=== PATIENT | female | born 1940 | race Caucasian/White ===

== ENCOUNTER 2017-02-06 12:42 | Inpatient (IN) | payer MEDICARE ==
[~2017-02-06] VITALS: Ht 160 cm; Wt 72.1 kg
[2017-02-06] MEDS ORDERED: SODIUM CHLORIDE FLUSH 10ML SYR IVF ONE (14:00)
[2017-02-06] MEDS ORDERED: AMPICILLIN/SULBACTAM 3 GM in SODIUM CHLORIDE 0.9% 100 ML IVPB ONE (14:00)
[2017-02-06 14:21] LABS: ASPARTATE AMINO TRANSFERASE 17 U/L (15-37); BLOOD UREA NITROGEN 32 mg/dL (7-18)
[2017-02-06] MEDS ORDERED: SODIUM CHLORIDE FLUSH 10ML SYR IVF PRN (15:30)
[2017-02-06] MEDS ORDERED: GLIM2TAB2 PO (15:47)
[2017-02-06] MEDS ORDERED: METF500T4 PO (15:47)
[2017-02-06] MEDS ORDERED: OXYC-223 PO (15:47)
[2017-02-06] MEDS ORDERED: GABA100C8 PO (15:47)
[2017-02-06] MEDS ORDERED: ASPI81TA50 PO (15:47)
[2017-02-06] MEDS ORDERED: DIPH25CA61 PO (15:47)
[2017-02-06] MEDS ORDERED: SODI325T PO (15:47)
[2017-02-06] MEDS ORDERED: ASCO10004 PO (15:47)
[2017-02-06] MEDS ORDERED: RANI150T4 PO (15:47)
[2017-02-06] MEDS ORDERED: LOSA50TA6 PO (15:47)
[2017-02-06] MEDS ORDERED: CHOL20002 PO (15:47)
[2017-02-06] MEDS ORDERED: ATOR20TA9 PO (15:48)
[2017-02-06] MEDS ORDERED: ACETAMINOPHEN 325 MG TABLET PO PRN (16:30)
[2017-02-06] MEDS ORDERED: ONDANSETRON 2MG/ML, 2ML IVP PRN (16:30)
[2017-02-06] MEDS ORDERED: [UNRECOGNIZED DRUG - OTHER] IV ONE (16:30)
[2017-02-06] MEDS ORDERED: PHARMACY MAY ADJ FOR RENAL FX MC PRN (16:30)
[2017-02-06] MEDS ORDERED: ONDANSETRON ODT 4 MG PO PRN (16:30)
[2017-02-06 19:30] VITALS: BP 146/83
[2017-02-06] MEDS ORDERED: ETHACRYNIC ACID 25 MG PO ONE ×3 (21:30→22:00)
[2017-02-06] MEDS: INSULIN REGULAR 100 UNITS/ML, 3ML VIAL SQ-INSULIN SCH (23:02)
[2017-02-06] MEDS: HEPARIN 5,000 UNITS/ML, 1ML SQ SCH (23:02)
[2017-02-06] MEDS: ATORVASTATIN 20 MG TABLET PO SCH (23:02)
[2017-02-06] MEDS: GABAPENTIN 100 MG CAPSULE PO SCH (23:02)
[2017-02-06] MEDS: AMPICILLIN/SULBACTAM 3 GM in SODIUM CHLORIDE 0.9% 100 ML IV SCH (23:02)
[2017-02-06 23:09] VITALS: BP 146/93
[2017-02-06] MEDS: OXYcodone/APAP 7.5/325MG TABLET PO PRN (23:50)
[2017-02-06 23:57] LABS: PATH.CAST-FLAG NOT PRESENT; SPERM-FLAG NOT PRESENT; SRC-FLAG NOT PRESENT; XTAL-FLAG NOT PRESENT; YLC-FLAG NOT PRESENT
[2017-02-07] MEDS: HEPARIN 5,000 UNITS/ML, 1ML SQ SCH ×3 (00:52→16:51)
[2017-02-07 02:00] VITALS: BP 124/70
[2017-02-07] MEDS: AMPICILLIN/SULBACTAM 3 GM in SODIUM CHLORIDE 0.9% 100 ML IV SCH ×4 (05:12→23:08)
[2017-02-07 06:00] LABS: ASPARTATE AMINO TRANSFERASE 21 U/L (15-37); BLOOD UREA NITROGEN 32 mg/dL (7-18)
[2017-02-07] MEDS: INSULIN REGULAR 100 UNITS/ML, 3ML VIAL SQ-INSULIN SCH ×4 (07:00→21:31)
[2017-02-07 07:17] VITALS: BP 99/59
[2017-02-07] MEDS: ASPIRIN 81 MG TABLET EC PO SCH (08:50)
[2017-02-07] MEDS: SODIUM BICARBONATE 650 MG TABLET PO SCH (08:51)
[2017-02-07] MEDS: LOSARTAN 50MG TABLET PO SCH (08:51)
[2017-02-07] MEDS: OXYcodone/APAP 7.5/325MG TABLET PO PRN ×2 (09:08→21:31)
[2017-02-07 12:50] VITALS: BP 111/66
[2017-02-07] MEDS: metroNIDAZOLE 500 MG TABLET PO SCH ×2 (16:44→21:32)
[2017-02-07 20:00] VITALS: BP 99/59
[2017-02-07] MEDS: GABAPENTIN 100 MG CAPSULE PO SCH (21:32)
[2017-02-07] MEDS: ATORVASTATIN 20 MG TABLET PO SCH (21:32)
[2017-02-08 02:00] VITALS: BP 107/63
[2017-02-08] MEDS: HEPARIN 5,000 UNITS/ML, 1ML SQ SCH ×3 (02:59→17:56)
[2017-02-08] MEDS: AMPICILLIN/SULBACTAM 3 GM in SODIUM CHLORIDE 0.9% 100 ML IV SCH ×4 (05:09→22:57)
[2017-02-08 05:17] LABS: BLOOD UREA NITROGEN 26 mg/dL (7-18)
[2017-02-08 07:09] VITALS: BP 108/61
[2017-02-08] MEDS: INSULIN REGULAR 100 UNITS/ML, 3ML VIAL SQ-INSULIN SCH ×4 (07:30→21:00)
[2017-02-08] MEDS: LOSARTAN 50MG TABLET PO SCH (09:44)
[2017-02-08] MEDS: ASPIRIN 81 MG TABLET EC PO SCH (09:44)
[2017-02-08] MEDS: SODIUM BICARBONATE 650 MG TABLET PO SCH (09:44)
[2017-02-08] MEDS: metroNIDAZOLE 500 MG TABLET PO SCH ×3 (09:44→21:43)
[2017-02-08] MEDS: OXYcodone/APAP 7.5/325MG TABLET PO PRN ×2 (10:00→21:43)
[2017-02-08 13:12] VITALS: BP 106/62
[2017-02-08 20:00] VITALS: BP 138/64
[2017-02-08] MEDS: GABAPENTIN 100 MG CAPSULE PO SCH (21:42)
[2017-02-08] MEDS: ATORVASTATIN 20 MG TABLET PO SCH (21:43)
[2017-02-09 02:00] VITALS: BP 123/72
[2017-02-09] MEDS: HEPARIN 5,000 UNITS/ML, 1ML SQ SCH ×3 (02:30→16:59)
[2017-02-09 04:53] LABS: BLOOD UREA NITROGEN 22 mg/dL (7-18)
[2017-02-09] MEDS: AMPICILLIN/SULBACTAM 3 GM in SODIUM CHLORIDE 0.9% 100 ML IV SCH ×4 (05:10→22:36)
[2017-02-09] MEDS: INSULIN REGULAR 100 UNITS/ML, 3ML VIAL SQ-INSULIN SCH ×4 (07:00→22:37)
[2017-02-09 08:00] VITALS: BP 134/82
[2017-02-09] MEDS ORDERED: POTASSIUM CHLORIDE 20 MEQ TAB.ER.PRT PO ONE (08:00)
[2017-02-09] MEDS: OXYcodone/APAP 7.5/325MG TABLET PO PRN ×2 (09:07→22:49)
[2017-02-09] MEDS: ASPIRIN 81 MG TABLET EC PO SCH (09:07)
[2017-02-09] MEDS: metroNIDAZOLE 500 MG TABLET PO SCH ×3 (09:07→22:36)
[2017-02-09] MEDS: LOSARTAN 50MG TABLET PO SCH (09:07)
[2017-02-09] MEDS: SODIUM BICARBONATE 650 MG TABLET PO SCH (09:08)
[2017-02-09] MEDS ORDERED: [UNRECOGNIZED DRUG - OTHER] IV ONE (10:30)
[2017-02-09] MEDS ORDERED: ETHACRYNIC ACID 25 MG PO ONE (12:00)
[2017-02-09 16:05] VITALS: BP 129/75
[2017-02-09 19:41] VITALS: BP 117/70
[2017-02-09] MEDS: ATORVASTATIN 20 MG TABLET PO SCH (22:36)
[2017-02-09] MEDS: GABAPENTIN 100 MG CAPSULE PO SCH (22:36)
[2017-02-10] MEDS: HEPARIN 5,000 UNITS/ML, 1ML SQ SCH ×2 (02:30→10:30)
[2017-02-10 03:38] VITALS: BP 135/71
[2017-02-10] MEDS: AMPICILLIN/SULBACTAM 3 GM in SODIUM CHLORIDE 0.9% 100 ML IV SCH (05:18)
[2017-02-10] MEDS: INSULIN REGULAR 100 UNITS/ML, 3ML VIAL SQ-INSULIN SCH (07:00)
[2017-02-10 07:19] VITALS: BP 110/60
[2017-02-10] MEDS: SODIUM BICARBONATE 650 MG TABLET PO SCH (08:24)
[2017-02-10] MEDS: ASPIRIN 81 MG TABLET EC PO SCH (08:24)
[2017-02-10] MEDS: metroNIDAZOLE 500 MG TABLET PO SCH (08:24)
[2017-02-10] MEDS: LOSARTAN 50MG TABLET PO SCH (08:24)
[2017-02-10] MEDS: OXYcodone/APAP 7.5/325MG TABLET PO PRN (08:27)
[2017-02-10] MEDS ORDERED: AMOX1TAB64 PO (08:58)
[2017-02-10] MEDS ORDERED: METR500T PO (08:58)
[2017-02-10 09:01] LABS: BLOOD UREA NITROGEN 18 mg/dL (7-18)
== END 2017-02-10 12:35 | disposition home or self-care (01) | DRG 291 ==
LOC: ED 15:07 → EDIP 15:27 → 4WST 18:04
PROVIDERS: ADMIT Family Medicine; ATTEND Family Medicine
DX: I13.0 Hypertensive heart and chronic kidney disease with heart failure and stage 1 through stage 4 chronic kidney disease, or unspecified chronic kidney disease (principal); I50.33 Acute on chronic diastolic (congestive) heart failure; A04.7 Enterocolitis due to Clostridium difficile; L03.115 Cellulitis of right lower limb; J96.10 Chronic respiratory failure, unspecified whether with hypoxia or hypercapnia; E78.5 Hyperlipidemia, unspecified; E11.22 Type 2 diabetes mellitus with diabetic chronic kidney disease; E11.51 Type 2 diabetes mellitus with diabetic peripheral angiopathy without gangrene; E11.65 Type 2 diabetes mellitus with hyperglycemia; I07.1 Rheumatic tricuspid insufficiency; I25.10 Atherosclerotic heart disease of native coronary artery without angina pectoris; I27.2 Other secondary pulmonary hypertension; I87.2 Venous insufficiency (chronic) (peripheral); J44.9 Chronic obstructive pulmonary disease, unspecified; K21.9 Gastro-esophageal reflux disease without esophagitis; N18.3 Chronic kidney disease, stage 3 (moderate); I25.2 Old myocardial infarction; Z79.4 Long term (current) use of insulin; Z79.84 Long term (current) use of oral hypoglycemic drugs; Z87.891 Personal history of nicotine dependence; Z95.5 Presence of coronary angioplasty implant and graft; Z99.81 Dependence on supplemental oxygen; Z88.5 Allergy status to narcotic agent; Z88.2 Allergy status to sulfonamides; Z88.8 Allergy status to other drugs, medicaments and biological substances; Z90.49 Acquired absence of other specified parts of digestive tract; Z90.89 Acquired absence of other organs; Z90.710 Acquired absence of both cervix and uterus
CPT/HCPCS: 36415; 71010; 80048; 80053; 80061; 81001; 82962; 83036; 83605; 83735; 83880; 84443; 85025; 85610; 85730; 87040; 87324; 87493; 93005; 93970; 96365; J0295; J1815